=== PATIENT | female | born 2000 | race African-American/Black ===

== ENCOUNTER 2023-08-16 12:24 | Emergency (ER) | payer MEDICAID, OTHER ==
[~2023-08-16] VITALS: Ht 157.5 cm; Wt 59.0 kg
[2023-08-16 12:24] VITALS: BP 122/78; PULSE 82; RESP 18; O2SAT 98
== END 2023-08-16 16:54 | disposition home or self-care (01) ==
LOC: ER 12:24
DX: R10.9 Unspecified abdominal pain (principal); Z97.5 Presence of (intrauterine) contraceptive device